=== PATIENT | female | born 1990 | race Caucasian/White ===

== ENCOUNTER → 2018-05-24 17:09 | Emergency (ER) | payer OTHER ==
[2018-05-24 18:03] LABS: ABS Basophils 0 10^3/ul (0-0.2); ABS Eosinophils 0.1 10^3/ul (0-0.6); ABS Lymphocytes 1.7 10^3/ul (1.0-4.8); ABS Monocytes 0.5 10^3/ul (0-0.8); ABS Neutrophils 5.6 10^3/ul (1.5-7.7); ABS Nucleated RBC 0 10^3/ul; Eosinophil % 0.8 % (0-6); Hematocrit 37 % (35-47); Hemoglobin 12.7 g/dl (12.0-16.0); Mean Corpuscular HGB Conc 34 g/dl (31-36); Mean Corpuscular Hemoglobin 29 pg (27-31); Mean Corpuscular Volume 86 fL (80-97); Nucleated Red Blood Cells % 0.1; Platelet Count 242 10^3/ul (150-450); Red Blood Count 4.35 10^6/ul (4.00-5.40); Red Cell Distribution Width 14 % (10.5-15); White Blood Count 7.9 10^3/ul (3.5-10.8)
[2018-05-24 18:25] LABS: INR 1.02 (0.77-1.02)
[2018-05-24 18:26] LABS: EGFR Non-African American 94.9 (>60)
--- NOTE | 2018-05-24 18:45 | ED ---
HPI Cardiac - HPI Summary HPI Summary: Patient is a 28 y/o F w/ c/o chest palpitations onsetting a week ago. She states her friends convinced her to come in to ED for Sx. She denies chest pain in the room but reports chest discomfort. Slight SOB and "pins and needles" in feet are reported in the room. PMHx of blood clots in lungs/legs and thyroid problems is denied. Patient states she is feeling nervous. PSHx of tonsillectomy. Patient has not had recent travel but notes she has been sitting a lot recently. She notes rare alcohol usage. On triage, pain is denied, nothing is noted to aggravate/alleviate Sx. Home medications and allergies are reviewed. - History of Current Complaint Chief Complaint: EDDysrhythmPalp Stated Complaint: IRREGULAR HEART RATE Time Seen by Provider: 05/24/18 17:21 Hx Obtained From: Patient Onset/Duration: Started Weeks Ago - onset a week ago, Still Present Timing: Constant Current Severity: None - pain denied Pain Intensity: 0 Pain Scale Used: 0-10 Numeric - 0/10 Character: Other: - discomfort Aggravating Factor(s): Nothing Alleviating Factor(s): Nothing Associated Signs and Symptoms: Positive: Shortness of Breath, Other: - "pins and needles" in feet, patient is nervous - Allergy/Home Medications Allergies/Adverse Reactions: Allergies Allergy/AdvReac Type Severity Reaction Status Date / Time No Known Allergies Allergy Verified 05/24/18 17:16 Home Medications: Home Medications NK [No Home Medications Reported] 05/24/18 [History Confirmed 05/24/18] PMH/Surg Hx/FS Hx/Imm Hx Endocrine/Hematology History: Denies: Hx Thyroid Disease Cardiovascular History: Denies: Hx Deep Vein Thrombosis Respiratory History: Denies: Hx Pulmonary Embolism - Surgical History Surgery Procedure, Year, and Place: tonsillectomy - Immunization History Date of Influenza Vaccine: 2017 Immunizations Up to Date: Yes Infectious Disease History: No Infectious Disease History: Denies: Traveled Outside the [place] in Last 30 Days - Family History Known Family History: Negative: Blood Disorder - Social History Occupation: Student Alcohol Use: Occasionally Alcohol Amount: "maybe once a month." Substance Use Type: Reports: None Smoking Status (MU): Never Smoked Tobacco Review of Systems Positive: Other - chest discomfort Positive: Shortness Of Breath Positive: Other - "pins and needles" in feet Positive: Other - nervous All Other Systems Reviewed And Are Negative: Yes Physical Exam - Summary Physical Exam Summary: GENERAL: Patient is a well-developed and nourished female who is lying comfortable in the stretcher. Patient is not in any acute respiratory distress. HEAD AND FACE: Normocephalic EYES: PERRLA, EOMI x 2. EARS: Hearing grossly intact. MOUTH: Oropharynx within normal limits. NECK: Supple, trachea is midline, no adenopathy, no JVD, no carotid bruit. CHEST: Symmetric, no tenderness at palpation LUNGS: Clear to auscultation bilaterally. No wheezing or crackles. CVS: Regular rate and rhythm, S1 and S2 present, no murmurs or gallops appreciated. ABDOMEN: Soft, non-tender. Bowel sounds are normal. No abdominal abnormal pulsations. EXTREMITIES: Full ROM in all major joints, no edema, no cyanosis or clubbing. NEURO: Alert and oriented x 3. No acute neurological deficits. Speech is normal and follows commands. SKIN: Dry and warm Triage Information Reviewed: Yes Vital Signs On Initial Exam: Initial Vitals Temp Pulse Resp BP Pulse Ox 98.0 F 133 18 142/90 99 05/24/18 17:13 05/24/18 17:13 05/24/18 17:13 05/24/18 17:13 05/24/18 17:13 Vital Signs Reviewed: Yes Diagnostics - Vital Signs Vital Signs Temp Pulse Resp BP Pulse Ox 05/24/18 17:13 98.0 F 133 18 142/90 99 - Laboratory Lab Results: Lab Results 05/24/18 05/24/18 05/24/18 Range/Units 17:55 17:55 17:55 WBC 7.9 (3.5-10.8) 10^3/ul RBC 4.35 (4.00-5.40) 10^6/ul Hgb 12.7 (12.0-16.0) g/dl Hct 37 (35-47) % MCV 86 (80-97) fL MCH 29 (27-31) pg MCHC 34 (31-36) g/dl RDW 14 (10.5-15) % Plt Count 242 (150-450) 10^3/ul MPV 7.0 L (7.4-10.4) um3 Neut % (Auto) 70.4 (38-83) % Lymph % (Auto) 22.0 L (25-47) % [place] % (Auto) 6.5 (0-7) % Eos % (Auto) 0.8 (0-6) % Baso % (Auto) 0.3 (0-2) % Absolute Neuts (auto) 5.6 (1.5-7.7) 10^3/ul Absolute Lymphs (auto) 1.7 (1.0-4.8) 10^3/ul Absolute Monos (auto) 0.5 (0-0.8) 10^3/ul Absolute Eos (auto) 0.1 (0-0.6) 10^3/ul Absolute Basos (auto) 0 (0-0.2) 10^3/ul Absolute Nucleated RBC 0 10^3/ul Nucleated RBC % 0.1 INR (Anticoag Therapy) (0.77-1.02) APTT (26.0-36.3) seconds D-Dimer, Quantitative (Less Than 230) ng/mL Sodium 139 (135-145) mmol/L Potassium 4.0 (3.5-5.0) mmol/L Chloride 107 (101-111) mmol/L Carbon Dioxide 27 (22-32) mmol/L Anion Gap 5 (2-11) mmol/L BUN 11 (6-24) mg/dL Creatinine 0.73 (0.51-0.95) mg/dL Est GFR ( Amer) 114.9 (>60) Est GFR (Non-Af Amer) 94.9 (>60) BUN/Creatinine Ratio 15.1 (8-20) Glucose 127 H (70-100) mg/dL Lactic Acid 1.2 (0.5-2.0) mmol/L Calcium 9.3 (8.6-10.3) mg/dL Magnesium 2.1 (1.9-2.7) mg/dL Total Bilirubin 0.40 (0.2-1.0) mg/dL AST 22 (13-39) U/L ALT 31 (7-52) U/L Alkaline Phosphatase 69 (34-104) U/L Troponin I 0.00 (<0.04) ng/mL B-Natriuretic Peptide ( - 100) pg/mL Total Protein 7.2 (6.4-8.9) g/dL Albumin 4.6 (3.2-5.2) g/dL Globulin 2.6 (2-4) g/dL Albumin/Globulin Ratio 1.8 (1-3) TSH Pending Thyroxine (T4) Pending Beta HCG, Quant < 0.60 mIU/mL 05/24/18 05/24/18 Range/Units 17:55 17:55 WBC (3.5-10.8) 10^3/ul RBC (4.00-5.40) 10^6/ul Hgb (12.0-16.0) g/dl Hct (35-47) % MCV (80-97) fL MCH (27-31) pg MCHC (31-36) g/dl RDW (10.5-15) % Plt Count (150-450) 10^3/ul MPV (7.4-10.4) um3 Neut % (Auto) (38-83) % Lymph % (Auto) (25-47) % [place] % (Auto) (0-7) % Eos % (Auto) (0-6) % Baso % (Auto) (0-2) % Absolute Neuts (auto) (1.5-7.7) 10^3/ul Absolute Lymphs (auto) (1.0-4.8) 10^3/ul Absolute Monos (auto) (0-0.8) 10^3/ul Absolute Eos (auto) (0-0.6) 10^3/ul Absolute Basos (auto) (0-0.2) 10^3/ul Absolute Nucleated RBC 10^3/ul Nucleated RBC % INR (Anticoag Therapy) 1.02 (0.77-1.02) APTT 30.4 (26.0-36.3) seconds D-Dimer, Quantitative < 200 (Less Than 230) ng/mL Sodium (135-145) mmol/L Potassium (3.5-5.0) mmol/L Chloride (101-111) mmol/L Carbon Dioxide (22-32) mmol/L Anion Gap (2-11) mmol/L BUN (6-24) mg/dL Creatinine (0.51-0.95) mg/dL Est GFR ( Amer) (>60) Est GFR (Non-Af Amer) (>60) BUN/Creatinine Ratio (8-20) Glucose (70-100) mg/dL Lactic Acid (0.5-2.0) mmol/L Calcium (8.6-10.3) mg/dL Magnesium (1.9-2.7) mg/dL Total Bilirubin (0.2-1.0) mg/dL AST (13-39) U/L ALT (7-52) U/L Alkaline Phosphatase (34-104) U/L Troponin I (<0.04) ng/mL B-Natriuretic Peptide 8 ( - 100) pg/mL Total Protein (6.4-8.9) g/dL Albumin (3.2-5.2) g/dL Globulin (2-4) g/dL Albumin/Globulin Ratio (1-3) TSH Thyroxine (T4) Beta HCG, Quant mIU/mL Result Diagrams: 05/24/18 17:55 05/24/18 17:55 Lab Statement: Any lab studies that have been ordered have been reviewed, and results considered in the medical decision making process. - Radiology CXR Xray Interpretation: No Acute Changes Radiology Interpretation Completed By: ED Physician - no acute process, pending official report - EKG 1717 Cardiac Rate: Tachycardia - rate of 108 bpm EKG Rhythm: Sinus Tachycardia EKG Interpretation: normal intervals Re-Evaluation - Re-Evaluation First Eval Re-Evaluation Time: 19:08 Change: Improved Comment: Discussed results with patient and patient reports feeling better. Patient is hemodynamically stable and safe for discharge. Strict return precautions given and patient will otherwise follow up with PCP. Disposition - Course Course Of Treatment: Patient is a 28 y/o F w/ c/o chest palpitations onsetting a week ago. She states her friends convinced her to come in to ED for Sx. She denies chest pain in the room but reports chest discomfort. Slight SOB and " pins and needles" in feet are reported in the room. PMHx of blood clots in lungs /legs and thyroid problems is denied. Patient has not had recent travel but notes she has been sitting a lot recently. She notes rare alcohol usage. Physical exam was unremarkable. CXR showed no acute process. EKG showed sinus tachycardia w/ 108 BPM, normal intervals. Labs showed Beta HCG <0.6, trop 0, BNP 8, glucose 127, lactic 1.2, D-dimer < 200, TSH 0.97, TSH 7.7. Discussed results with patient and patient reports feeling better. Patient is hemodynamically stable and safe for discharge. Strict return precautions given and patient will otherwise follow up with PCP. Dx of palpitations. - Diagnoses Provider Diagnoses: Heart palpitations Discharge - Sign-Out/Discharge Documenting (check all that apply): Patient Departure - discharge - Discharge Plan Condition: Stable Disposition: HOME Patient Education Materials: Heart Palpitations (ED), Anxiety (ED) Referrals: [facility] [Outside] - 3 Days Additional Instructions: Follow up with your primary care physician in 1-3 days. RETURN TO THE EMERGENCY DEPARTMENT FOR CHANGING OR WORSENING SYMPTOMS. - Billing Disposition and Condition Condition: STABLE Disposition: Home - Attestation Statements Document Initiated by Kristopher: Yes Documenting Scribe: Tod Mustafa Provider For Whom Kristopher is Documenting (Include Credential): Alonzo Patel MD Scribe Attestation: Tod Griffith , scribed for Alonzo Patel MD on 05/24/18 at 2140. Scribe Documentation Reviewed: Yes Provider Attestation: The documentation as recorded by the Tod wooten accurately reflects the service I personally performed and the decisions made by me, Alonzo Patel MD
[2018-05-24 19:16] VITALS: BP 108/73
--- NOTE | 2018-05-25 07:42 | RAD ---
HISTORY: Palpitations COMPARISONS: None VIEWS: 1: frontal AP view of the chest at 6:12 PM FINDINGS: LINES AND TUBES: None. CARDIOMEDIASTINAL SILHOUETTE: The cardiomediastinal silhouette is normal for portable technique. PLEURA: The costophrenic angles are sharp. No pleural abnormalities are noted. LUNG PARENCHYMA: The lungs are clear. ABDOMEN: The upper abdomen is clear. There is no subphrenic gas. BONES AND SOFT TISSUES: No bone or soft tissue abnormalities are noted. IMPRESSION: NO ACTIVE CARDIOPULMONARY DISEASE. R0
== END | disposition home or self-care (01) ==
LOC: ED 17:09
DX: R00.2 Palpitations (principal); R06.02 Shortness of breath; R20.2 Paresthesia of skin; R45.0 Nervousness
CPT/HCPCS: 36415; 71045; 80053; 83605; 83735; 83880; 84436; 84443; 84484; 84702; 85025; 85379; 85610; 85730; 93005; 99284